=== PATIENT | male | born 1950 | race Caucasian/White ===

== ENCOUNTER 2023-05-02 09:01 | Outpatient (CLI) | payer MEDICARE, BC ==
--- NOTE | 2023-05-02 09:53 | Sleep Patient Instructions ---
Sleep Center Visit Summary - Patient Visit Information Reason for Visit: Initial consult to establish care for PAP therapy - Patient Instructions Additional Instructions: You will continue with CPAP therapy with pressure set at 6-12 cmH2O. A supply prescription will be updated with your DME. We encourage you to continue to try to lose weight. Please follow up with the sleep care office in 1 year. - Clinic Information Contact: [facility] [address] [place] [address] [email or web address] T: [phone]
--- NOTE | 2023-05-02 09:57 | SLEEP CARE CONSULTATION ---
Information from patient questionnaire entered by Rae Martinez. I have reviewed and concur with the information entered by Rae Martinez. This document represents the service I personally performed and the decisions made by me, Ginny Keane ARNP. History of Present Illness Service Date and Time: 05/02/2023 0901 Reason for Visit: New patient, sleep apnea on CPAP therapy Chief Complaint: reports: Other ([facility]) Date of Onset: 5YRS Usual bedtime: 930PM Time it takes to fall asleep: 30MIN Snores at night: No Observed to quit breathing while asleep: Yes Sleeps alone due to snoring: Yes Number of times waking at night: 2 Reasons for waking at night: reports: Bathroom Toss, Turn, or Twitch while sleeping: Yes Recalls having dreams: Yes Usually gets out of bed at: 7AM Feels refreshed in the morning: Yes Morning headache: No Sleepy or fatigued during the day: No Ever fallen asleep while driving: No Takes day naps: No Dreams during day naps: No Prior sleep studies: Yes Year and Where: 2020 [facility] Additional HPI information: FENG SCHAEFER was diagnosed to have severe, AHI 49.9, obstructive sleep apnea- hypopnea syndrome as seen in sleep study dated 02/06/2021 through [facility] and comes in today to establish care for CPAP therapy. - Parasomnia Symptoms Ever been unable to move upon waking from sleep: No Walks in sleep: No Talks in sleep: Yes Ever acted out dreams in sleep: No Ever felt weak in the knees when startled or emotional: No Bothered by creepy, crawly, restless sensations in legs: No Problems with memory or concentration: No CPAP Compliance Data - Data Reviewed with Patient Average duration of nightly device use: 9 hours 34 minutes Compliance rate %: 99 (89/90 days used) Current pressure setting (cmH2O): 6-12 Average residual AHI: 2.3 Central apnea: 0.2 Obstructive apnea: 1.4 Hypopnea: 0.5 Average large leak: 6.7 L/min Compliance data discussion: He has a Resmed Airsense 11, s/u 03/2021. He is using [employer] for his supplies with no issues. He is using a full face mask. Subjective Patient concerns: reports: mask leak noise. denies: aerophagia, mask discomfort, air blowing in eyes, condensation in mask/hose, nasal congestion, dry mouth, nose, throat, epistaxis Observed to snore while using device: No Current pressure setting perceived as: comfortable On therapy, patient: reports: sleeping better, awakening more refreshed, being more awake and alert during the day, more rested overall. denies: drowsiness while driving Initial [place] Sleepiness Scale score: 6 (05/02/23) Past Medical History Past Medical History: reports: Anxiety Social History The patient's occupation is a RE. Patient is and lives in [place]. Have you smoked in the past 12 months: No Alcohol use: Yes Alcohol amount and frequency: 2 DRINKS NIGHTLY Caffeine use: Yes Caffeine amount and frequency: 16OZ DAILY Family History Family history of sleep disordered breathing: Yes Family Hx Sleep Apnea: Sibling: Sleep apnea - Treated Allergies and Home Medications Known drug allergies: No Drug allergies reviewed: Yes Home medication list reviewed: Yes Allergy and home medication list: Medications: Fluoxetine Zolpidem Review of Systems Weight gain over past 5 years: 4 Cardiovascular: denies: high blood pressure Gastrointestinal: denies: heartburn Neurological: denies: headaches Psychiatric: reports: anxiety. denies: depression Ear/Nose/Throat: reports: wisdom teeth removed. denies: tonsillectomy Immunologic: reports: sneezing, allergies to food or environment (seasonal cedar tree pollen) Physical Exam Vital signs obtained and entered by: RAE Perkins MA Blood Pressure: 130/78 (LEFT ARM) Cuff size: regular Heart Rate: 55 O2 Saturation: 96 Height: 6 ft 3 in Weight: 273 lb Body Mass Index: 34.1 BMI Classification: Obese Neck circumference: 19 Heart: regular rate and rhythm Lungs: clear bilaterally Impression and Plan 1. Obstructive Sleep Apnea-Hypopnea Syndrome, severe, with good treatment compliance and good apnea control. On CPAP therapy, the patient has better sleep quality and is more rested overall. He is using a full face mask and is getting regular supplies. Patient has significant improvement of their sleep apnea and is satisfied with current CPAP therapy. Patient denies problems with oral dryness, nasal congestion, epistaxis, skin irritation or aerophagia. Patient's apnea severity and rationale for treatment to reduce apnea, improve sleep quality and reduce cardiovascular and cerebrovascular events was reviewed. I also reviewed the benefit of consistent device use of CPAP for anxiety. 2. Obesity, unspecified. Currently patients BMI is 34.1. Obesity increases the risk of apnea, CPAP pressure requirements and overall health risks especially cardiovascular and diabetes. Thus patient is advised to try to lose weight. Continue auto CPAP pressure at 6-12 cmH2O Update supplies Notify me if snoring with mask or feeling that the pressure is too much or too little Attempt to lose weight Call this office if any problems using CPAP Return for follow up in 1 year, or sooner if concerns arise Counseling Topics: Spare mask, Weight loss health impact Visit Type: In Office Time Spent with Patient (minutes): 30 Provider Statement: I spent 100% of the Face to Face Visit with the patient with greater than 50% spent counseling the patient and coordination of care.
[2023-05-02 09:58] VITALS: BP 130/78
== END 2023-05-02 09:02 | disposition home or self-care (01) ==
LOC: SC 09:01
PROVIDERS: ATTEND Nurse Practitioner Family
DX: G47.33 Obstructive sleep apnea (adult) (pediatric) (principal); E66.9 Obesity, unspecified; Z68.34 Body mass index [BMI] 34.0-34.9, adult
CPT/HCPCS: 99203; G0463; 99212

== ENCOUNTER 2024-05-04 15:10 | Outpatient (CLI) | payer MEDICARE, BC ==
--- NOTE | 2024-05-04 15:54 | Sleep Patient Instructions ---
Sleep Center Visit Summary - Patient Visit Information Reason for Visit: Annual follow-up - Patient Instructions Additional Instructions: You will continue with CPAP therapy with pressure set at 6-12 cmH2O. A supply prescription will be updated with your DME. We encourage you to continue to try to lose weight. Please follow up with the sleep care office in 1 year. - Clinic Information Contact: [facility] [address] [place] [address] [email or web address] T: [phone]
--- NOTE | 2024-05-04 15:56 | SLEEP CARE CONSULTATION ---
Information from patient questionnaire entered by Marie Martinez. I have reviewed and concur with the information entered by Marie Martinez. This document represents the service I personally performed and the decisions made by , Ginny Keane ARNP. History of Present Illness Service Date and Time: 05/04/2024 1510 Previous diagnosis: Severe, Obstructive Sleep Apnea-Hypopnea Syndrome AHI: 49.9 (on 02/06/21) Reason for follow up: annual (LAST SEEN 04/2023) Equipment type: CPAP (RESMED Airsense 11, s/u 03/2021) Equipment obtained from: Other ([facility]; getting supplies) Mask style: Full face Mask brand: Resmed ([id number]) Backup mask available: Yes Last cushion change: in last week Prior sleep studies: Yes Year and Where: 2020 [facility] HPI additional information: FENG SCHAEFER was diagnosed to have severe, AHI 49.9, obstructive sleep apnea- hypopnea syndrome and returned today for CPAP therapy annual follow-up. Sleep Study - Results Prior sleep studies: Yes Year and Where: 2020 [facility] CPAP Compliance Data - Data Reviewed with Patient Average duration of nightly device use: 9 HRS 47 MINS Compliance rate %: 99 (05/04/23-05/02/24; 362/365 days used) Current pressure setting (cmH2O): 6-12 Average residual AHI: 2.2 Central apnea: 0.3 Obstructive apnea: 1.1 Hypopnea: 0.6 Average large leak: 9.1 L/min Subjective Missed days of use due to: reports: travel Patient concerns: reports: mask leak noise (needs adjustment), dry mouth, nose, throat. denies: aerophagia, mask discomfort, air blowing in eyes, condensation in mask/hose, nasal congestion, epistaxis Observed to snore while using device: No Current pressure setting perceived as: comfortable On therapy, patient: reports: sleeping better, awakening more refreshed, being more awake and alert during the day, more rested overall. denies: drowsiness while driving Initial [place] Sleepiness Scale score: 6 (05/02/23) Current [place] Sleepiness Scale score: 2 Allergies and Home Medications Known drug allergies: No Drug allergies reviewed: Yes Home medication list reviewed: Yes (no changes) Allergy and home medication list: Allergies No Known Drug Allergies Allergy (Verified 05/03/24 10:24) Review of Systems Review of systems same as previous: Yes (Shingles vaccine) Physical Exam Vital signs obtained and entered by: GINNY VILLEGAS Blood Pressure: 140/100 (left arm) Cuff size: long Heart Rate: 69 O2 Saturation: 94 Height: 6 ft 3 in Weight: 274 lb 9.6 oz Body Mass Index: 34.3 BMI Classification: Obese Impression and Plan 1. Obstructive Sleep Apnea-Hypopnea Syndrome, severe, with good treatment compliance and good apnea control. On CPAP therapy, the patient has better sleep quality and is more rested overall. Patient has significant improvement of their sleep apnea and is satisfied with current CPAP therapy. Patient denies problems with oral dryness, nasal congestion, epistaxis, skin irritation or aerophagia. Patient's apnea severity and rationale for treatment to reduce apnea, improve sleep quality and reduce cardiovascular and cerebrovascular events was reviewed. I also reviewed the benefit of consistent device use of CPAP for anxiety. 2. Obesity, unspecified. Currently patients BMI is 34.3. He is trying to lose weight. He is staying active. Obesity increases the risk of apnea, CPAP pressure requirements and overall health risks especially cardiovascular and diabetes. Thus patient is advised to continue to try to lose weight. * Continue auto CPAP pressure at 6-12 cmH2O * Update supply prescription * Notify me if snoring with mask or feeling that the pressure is too much or too little * Attempt to lose weight * Call this office if any problems using CPAP * Return for follow up in 12 months, or sooner if concerns arise Counseling Topics: Weight loss health impact Prescriptions: Device supplies Follow up with Sleep Care in: 1 year Visit Type: In Office Time Spent with Patient (minutes): 20 Provider Statement: I spent 100% of the Face to Face Visit with the patient with greater than 50% spent counseling the patient and coordination of care.
[2024-05-04 15:58] VITALS: BP 140/100; O2SAT 94
== END 2024-05-04 15:11 | disposition home or self-care (01) ==
LOC: SC 15:10
PROVIDERS: ATTEND Nurse Practitioner Family
DX: G47.33 Obstructive sleep apnea (adult) (pediatric) (principal); E66.9 Obesity, unspecified; Z68.34 Body mass index [BMI] 34.0-34.9, adult
CPT/HCPCS: 99213; G0463; 99212